=== PATIENT | female | born 1950 | race Caucasian/White ===

== ENCOUNTER 2022-06-21 17:31 | Inpatient (IN) | payer MEDICARE, SELFPAY ==
[~2022-06-21] VITALS: Ht 167.6 cm; Wt 81.1 kg
[2022-06-21] MEDS ORDERED: FUROSEMIDE 40MG/4ML VIAL (J1940) IV ONE ×2 (17:35→21:00)
[2022-06-21] MEDS ORDERED: NITROGLYCERIN 2% OINT 1 GM *U/D* PKT TOP ONE (17:35)
[2022-06-21] MEDS ORDERED: ECOT81TA5 PO (17:53)
[2022-06-21] MEDS ORDERED: ATOR80TA59 PO (17:53)
[2022-06-21] MEDS ORDERED: METO1TAB32 PO (17:53)
[2022-06-21] MEDS ORDERED: GLIP10TA PO (17:53)
[2022-06-21] MEDS ORDERED: GABA-1171 PO (17:53)
[2022-06-21] MEDS ORDERED: FURO40TA2 PO (17:53)
[2022-06-21] MEDS ORDERED: OMEG1CAP85 PO (17:53)
[2022-06-21] MEDS ORDERED: ELIQ5TAB PO (17:53)
[2022-06-21] MEDS ORDERED: EQL400CA9 PO (17:53)
[2022-06-21] MEDS ORDERED: METF500T13 PO (17:53)
[2022-06-21] MEDS ORDERED: ISOS1TAB35 PO (17:53)
[2022-06-21] MEDS ORDERED: EZET10TA21 PO (17:53)
[2022-06-21 18:02] LABS: BASO # 0.1 10^3/uL (0.0-0.2); BASO % 1.1 % (0.0-1.0); EOS # 0.2 10^3/uL (0.0-0.5); EOS % 2.2 % (0.0-3.0); HEMATOCRIT 45.7 % (36.0-47.0); HEMOGLOBIN 14.1 g/dl (12.0-15.5); LYMPH # 3.4 10^3/uL (1.5-5.0); LYMPH % 46.5 % (24.0-44.0); MEAN CORPUSCULAR HEMOGLOBIN 28.1 pg (27.0-33.0); MEAN CORPUSCULAR HGB CONC 30.9 g/dl (32.0-36.5); MONO # 0.7 10^3/uL (0.0-0.8); MONO % 9.8 % (2.0-8.0); NEUTROPHILS # 2.9 10^3/uL (1.5-8.5); NEUTROPHILS % 39.6 % (36.0-66.0); PLATELET COUNT, AUTOMATED 309 10^3/uL (150-450); RED BLOOD COUNT 5.02 10^6/uL (4.00-5.40); WHITE BLOOD COUNT 7.4 10^3/uL (4.0-10.0)
[2022-06-21 18:44] LABS: ALBUMIN 3.2 GM/DL (3.2-5.2); BILIRUBIN,DIRECT 0.2 MG/DL (0.0-0.2); BILIRUBIN,TOTAL 0.8 MG/DL (0.2-1.0); CALCIUM LEVEL 9.4 MG/DL (8.8-10.2); CREATININE FOR GFR 1.42 MG/DL (0.55-1.30); GLOMERULAR FILTRATION RATE 38.7 (>39); THYROID STIMULATING HORMONE 2.27 uIU/ML (0.358-3.740); THYROXINE (T4) 14.3 UG/DL (4.5-12.0); TOTAL PROTEIN 7.3 GM/DL (6.4-8.2)
[2022-06-21] MEDS ORDERED: LevoFLOXacin IV 750 MG in IV 1 EA IV ONE (19:10)
[2022-06-21] MEDS ORDERED: FURO20TA2 PO (20:35)
[2022-06-21] MEDS ORDERED: METO1TAB87 PO (20:35)
[2022-06-21] MEDS ORDERED: HOME MED LIST COMPLETE! XX SCH (20:40)
[2022-06-21] MEDS ORDERED: GLUCOSE 4GM CHEW TABLET PO PRN (20:40)
[2022-06-21] MEDS ORDERED: ACETAMINOPHEN TAB 650MG DOSE (2X325MG) PO PRN (20:40)
[2022-06-21] MEDS ORDERED: GLUCAGON INJ 1MG VIAL SC PRN (20:40)
[2022-06-21] MEDS ORDERED: DEXTROSE 50% 50 ML SYRINGE IV PRN (20:40)
[2022-06-21] MEDS ORDERED: INSULIN LISPRO (NovoLOG) PER UNIT SC SCH (21:00)
[2022-06-21] MEDS ORDERED: HEPARIN SOD (PORCINE) 5000UNITS/ML 1ML VIAL/SYRINGE SC SCH (22:00)
[2022-06-21 22:21] VITALS: BP 110/53
[2022-06-21] MEDS: METOPROLOL TART 25 MG TABLET PO SCH (23:00)
[2022-06-21] MEDS: ISOSORBIDE MON. (IMDUR) 30MG XR TAB PO SCH (23:00)
[2022-06-21] MEDS: GABAPENTIN 100 MG CAP PO SCH (23:00)
[2022-06-22] MEDS ORDERED: ASPIRIN 325 MG TAB PO STA (00:20)
[2022-06-22] MEDS ORDERED: CLOPIDOGREL 300 MG TAB (PLAVIX) PO STA (00:31)
[2022-06-22] MEDS ORDERED: HEPARIN SOD (PORCINE) 5000UNITS/ML 1ML VIAL/SYRINGE IV PRN (00:35)
[2022-06-22] MEDS ORDERED: HEPARIN SOD (PORCINE) 5000UNITS/ML 1ML VIAL/SYRINGE IV ONE (00:35)
[2022-06-22] MEDS: HEPARIN DRIP 25,000 UNITS in IV 1 EA IV SCH ×2 (01:19→06:05)
[2022-06-22 01:47] LABS: HEMATOCRIT 33.6 % (36.0-47.0); HEMOGLOBIN 10.8 g/dl (12.0-15.5); MEAN CORPUSCULAR HEMOGLOBIN 28.4 pg (27.0-33.0); MEAN CORPUSCULAR HGB CONC 32.1 g/dl (32.0-36.5); MEAN CORPUSCULAR VOLUME 88.4 fl (80.0-96.0); PLATELET COUNT, AUTOMATED 228 10^3/uL (150-450); WHITE BLOOD COUNT 6.3 10^3/uL (4.0-10.0)
[2022-06-22 03:40] LABS: CALCIUM LEVEL 8.8 MG/DL (8.8-10.2); CREATININE FOR GFR 1.17 MG/DL (0.55-1.30); GLOMERULAR FILTRATION RATE 48.4 (>39); MAGNESIUM LEVEL 1.6 MG/DL (1.8-2.4); POTASSIUM SERUM 3.5 MEQ/L (3.5-5.1)
[2022-06-22 04:00] VITALS: BP 109/54
[2022-06-22] MEDS ORDERED: POTASSIUM CHLORIDE 10MEQ SR TABLET PO STA (07:25)
[2022-06-22 07:29] LABS: BASO % 0.5 % (0.0-1.0); EOS # 0.1 10^3/uL (0.0-0.5); EOS % 1.7 % (0.0-3.0); HEMATOCRIT 33.6 % (36.0-47.0); HEMOGLOBIN 10.8 g/dl (12.0-15.5); LYMPH # 1.5 10^3/uL (1.5-5.0); LYMPH % 25.1 % (24.0-44.0); MEAN CORPUSCULAR HEMOGLOBIN 28.2 pg (27.0-33.0); MEAN CORPUSCULAR HGB CONC 32.1 g/dl (32.0-36.5); MEAN CORPUSCULAR VOLUME 87.7 fl (80.0-96.0); MONO # 0.8 10^3/uL (0.0-0.8); MONO % 12.6 % (2.0-8.0); NEUTROPHILS # 3.6 10^3/uL (1.5-8.5); NEUTROPHILS % 59.9 % (36.0-66.0); PLATELET COUNT, AUTOMATED 236 10^3/uL (150-450); RED BLOOD COUNT 3.83 10^6/uL (4.00-5.40); WHITE BLOOD COUNT 5.9 10^3/uL (4.0-10.0)
[2022-06-22 07:57] VITALS: BP 118/57
[2022-06-22] MEDS ORDERED: ASPIRIN 81MG ENTERIC TABLET PO SCH (09:00)
[2022-06-22] MEDS ORDERED: EZETIMIBE 10MG TABLET (ZETIA) PO SCH (09:00)
[2022-06-22] MEDS ORDERED: ATORVASTATIN 20 MG TAB PO SCH (09:00)
[2022-06-22 09:38] VITALS: BP 118/57
[2022-06-22] MEDS: GABAPENTIN 100 MG CAP PO SCH (09:38)
[2022-06-22] MEDS: ISOSORBIDE MON. (IMDUR) 30MG XR TAB PO SCH (09:38)
[2022-06-22] MEDS: METOPROLOL TART 25 MG TABLET PO SCH (09:38)
[2022-06-22] MEDS: INSULIN LISPRO (NovoLOG) PER UNIT SC SCH ×2 (09:39→12:48)
[2022-06-22] MEDS: MAG SULF 1GM/100ML (MAG RUN) 1 GM in IV 1 EA IV SCH ×3 (09:39→12:48)
[2022-06-22 12:15] VITALS: BP 105/52
[2022-06-22] MEDS ORDERED: CLOPIDOGREL 75 MG TAB PO SCH (21:00)
== END 2022-06-22 15:47 | disposition short-term general hospital (02) | DRG 280 ==
LOC: EDBD 17:31 → M ED 17:31 → M ED INP 20:36 → M PCU 22:09
PROVIDERS: ADMIT Internal Medicine; ATTEND Internal Medicine
DX: I21.4 Non-ST elevation (NSTEMI) myocardial infarction (principal); J96.01 Acute respiratory failure with hypoxia; N17.9 Acute kidney failure, unspecified; E87.2 Acidosis; E11.9 Type 2 diabetes mellitus without complications; I12.9 Hypertensive chronic kidney disease with stage 1 through stage 4 chronic kidney disease, or unspecified chronic kidney disease; E78.5 Hyperlipidemia, unspecified; I25.10 Atherosclerotic heart disease of native coronary artery without angina pectoris; N18.9 Chronic kidney disease, unspecified; Z88.0 Allergy status to penicillin; Z88.8 Allergy status to other drugs, medicaments and biological substances; Z79.899 Other long term (current) drug therapy; Z79.82 Long term (current) use of aspirin